=== PATIENT | male | born 1995 | race African-American/Black ===

== ENCOUNTER 2021-09-12 06:07 | Emergency (ER) | payer OTHER ==
[2021-09-12 06:24] VITALS: BP 144/99; PULSE 81; BMI 43.0
[2021-09-12] MEDS ORDERED: SODIUM CHLORIDE 0.9% 500 ML INFUS.BAG IV ONE (07:41)
[2021-09-12] MEDS ORDERED: ACETAMINOPHEN 1000 MG/100 ML VIAL (NON FORMULARY) IVPB ONE (07:44)
[2021-09-12 08:24] LABS: BASO % 0.4 % (0-2.0); HEMATOCRIT 42.1 % (35.4-49); HEMOGLOBIN 14.1 GM/dL (11.7-16.9); LYMPH % 7.7 % (8-40); MCH 30.4 pg (25.7-33.7); MCHC 33.5 g/dl (32.0-35.9); MEAN CELL VOLUME 90.7 fl (80-96); MEAN PLT VOLUME 9.3 fl (7.5-11.1); MONO % 9.2 % (3.8-10.2); NEUT % 82.7 % (42.8-82.8); PLATELET COUNT 260 10^3/uL (134-434); RBC 4.64 M/mm3 (4.00-5.60); RDW 14.4 % (11.9-15.9)
[2021-09-12] MEDS ORDERED: ACETAMINOPHEN INJECTION 100 ML IVPB ONE (08:24)
[2021-09-12 08:32] LABS: INR 1.26 (0.83-1.09); PROTHROMBIN TIME (PATIENT) 14.8 SEC (9.7-13.0)
[2021-09-12 08:36] LABS: ACTIVATED PTT 31.4 SECONDS (25.2-36.5)
[2021-09-12 08:52] LABS: CALCIUM 8.9 mg/dL (8.5-10.1)
[2021-09-12 08:53] LABS: ALBUMIN 3.4 g/dl (3.4-5.0); BLOOD UREA NITROGEN 9.6 mg/dL (7-18)
[2021-09-12 08:56] LABS: CREATININE 0.9 mg/dL (0.55-1.3)
[2021-09-12 08:58] LABS: BILIRUBIN,TOTAL 1.4 mg/dL (0.2-1); TOT PROT 7.2 g/dl (6.4-8.2)
[2021-09-12] MEDS ORDERED: valACYclovir HCL 1000 MG TABLET PO ONE (10:32)
[2021-09-12] MEDS ORDERED: CEPHALEXIN MONOHYDRATE 500 MG CAPSULE (UD) PO ONE (10:34)
[2021-09-12] MEDS ORDERED: CEPHALEXIN MONOHYDRATE 500 MG CAPSULE (UD) ONE (10:49)
[2021-09-12] MEDS ORDERED: valACYclovir HCL 500 MG TABLET (FP) ONE (10:50)
[2021-09-12 11:28] VITALS: TEMP 98.6
== END 2021-09-12 11:28 | disposition home or self-care (01) ==
LOC: JER 06:07
PROC: 3E033NZ Introduction of Analgesics, Hypnotics, Sedatives into Peripheral Vein, Percutaneous Approach (ICD-10-PCS; principal; 2021-09-12)
DX: L03.818 Cellulitis of other sites (principal)
CPT/HCPCS: 36415; 74177-TC; 80053; 85025; 85610; 85730; 86850; 86900; 86901; 87040; 99284-25; J0131; Q9967